=== PATIENT | male | born 1980 | race African-American/Black ===

== ENCOUNTER 2017-06-04 22:23 | Emergency (ER) | payer OTHER ==
[~2017-06-04] VITALS: Ht 182.9 cm; Wt 117.7 kg
[2017-06-04 22:25] VITALS: BP 128/77; PULSE 68; TEMP 36.8; O2SAT 97; Ht 182.9 cm; Wt 117.7 kg
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
== END 2017-06-05 00:03 | disposition home or self-care (01) ==
LOC: C.EDB 22:26
DX: S16.1XXA Strain of muscle, fascia and tendon at neck level, initial encounter (principal); V89.2XXA Person injured in unspecified motor-vehicle accident, traffic, initial encounter; J45.909 Unspecified asthma, uncomplicated

== ENCOUNTER 2017-07-03 07:34 | Emergency (ER) | payer OTHER ==
[~2017-07-03] VITALS: Ht 182.9 cm; Wt 114.7 kg
[2017-07-03 07:38] VITALS: TEMP 36.6; Ht 182.9 cm; Wt 114.7 kg
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
[2017-07-03 08:36] VITALS: BP 135/69; PULSE 71; O2SAT 96
== END 2017-07-03 08:37 | disposition home or self-care (01) ==
LOC: C.EDB 07:36 → C.EDA 08:37
DX: M54.6 Pain in thoracic spine (principal); J45.909 Unspecified asthma, uncomplicated; I10 Essential (primary) hypertension; Z87.442 Personal history of urinary calculi; Z98.890 Other specified postprocedural states